=== PATIENT | female | born 1960 | race Caucasian/White ===

== ENCOUNTER 2019-06-09 15:55 | Emergency (ER) | payer BC ==
[~2019-06-09] VITALS: Ht 162.6 cm; Wt 63.3 kg
[~2019-06-09 15:55] MED LIST: ASPI-611 PO; BENA20TA82 PO; CARV12.5 PO; CHOL2000 PO; LORA0.5T PO; OMEP20CA11 PO; OSC500T PO
[2019-06-09 16:44] LABS: BASOPHILS % (AUTO) 0.8 % (0-1); EOSINOPHILS # (AUTO) 0.1 X10'3 (0-0.9); EOSINOPHILS % (AUTO) 2.5 % (0-6); HEMATOCRIT 41.1 % (35.0-45.0); HEMOGLOBIN 13.9 g/dl (12.0-16.0); LYMPHOCYTES # (AUTO) 1.4 X10'3 (1.1-4.8); LYMPHOCYTES % (AUTO) 47.2 % (21-51); MEAN CORPUSCULAR HEMOGLOBIN 31.6 PG (27.0-31.0); MEAN CORPUSCULAR HGB CONC 33.8 g/dL (33.0-36.5); MEAN CORPUSCULAR VOLUME 93.7 FL (78-98); MONOCYTES # (AUTO) 0.4 X10'3 (0-0.9); MONOCYTES % (AUTO) 13.1 % (2-12); NEUTROPHILS # (AUTO) 1.1 X10'3 (1.8-7.7); NEUTROPHILS % (AUTO) 36.4 % (42-75); PLATELET COUNT 165 X10'3 (140-440); RED BLOOD COUNT 4.38 X10'6 (4.20-5.60); RED CELL DISTRIBUTION WIDTH 12.8 % (11.5-14.5); WHITE BLOOD COUNT 3.1 X10'3 (4.5-11.0)
[2019-06-09 16:54] LABS: ALANINE AMINOTRANSFERASE 26 U/L (12-78); ALBUMIN/GLOBULIN RATIO 1.1 (1.1-1.5); ALKALINE PHOSPHATASE 41 IU/L (46-116); ANION GAP 9 (8-16); ASPARTATE AMINO TRANSFERASE 16 U/L (10-37); BLOOD UREA NITROGEN 16 MG/DL (7-18); BUN/CREATININE RATIO 22.5 (6.6-38.0); CALCIUM 9.2 MG/DL (8.5-10.1); CHLORIDE 108 MMOL/L (99-107); CREATININE 0.71 MG/DL (0.40-0.90); GLUCOSE 87 MG/DL (70-104); POTASSIUM 3.8 MMOL/L (3.5-5.1); SODIUM 143 MMOL/L (135-145); TOTAL CARBON DIOXIDE 26.5 MMOL/L (24-32); TOTAL PROTEIN 7.6 G/DL (6.4-8.2); eGFR 85 ML/MIN
[2019-06-09 16:55] LABS: PARTIAL THROMBOPLASTIN TIME 28 SECONDS (22-32)
[2019-06-09] MEDS ORDERED: potassium Cl 20 mEq SR tablet PO ONE (19:05)
[2019-06-09 20:26] VITALS: BP 164/79
== END 2019-06-09 20:28 | disposition home or self-care (01) ==
LOC: ER 16:00
DX: R07.89 Other chest pain (principal); R06.02 Shortness of breath; I10 Essential (primary) hypertension; K21.9 Gastro-esophageal reflux disease without esophagitis; F10.99 Alcohol use, unspecified with unspecified alcohol-induced disorder; Z86.19 Personal history of other infectious and parasitic diseases; Z88.1 Allergy status to other antibiotic agents; Z91.040 Latex allergy status; Z79.82 Long term (current) use of aspirin; Z79.899 Other long term (current) drug therapy; Y90.9 Presence of alcohol in blood, level not specified
CPT/HCPCS: 36415; 71045; 80053; 84484; 85025; 85610; 85730; 93005; 99284

== ENCOUNTER 2019-09-14 11:24 | Inpatient (IN) | payer BC, OTHER ==
[~2019-09-14] VITALS: Ht 162.6 cm; Wt 63.0 kg
--- NOTE | 2019-09-14 12:58 | NUR ---
travel clerk phoned Dr. Ibrahim and he is in the labor delivery rn but is aware of the patient's status and need to evaluate her.
[2019-09-14 13:08] LABS: BASOPHILS % (AUTO) 0.8 % (0-1); EOSINOPHILS # (AUTO) 0.1 X10'3 (0-0.9); EOSINOPHILS % (AUTO) 2.5 % (0-6); HEMATOCRIT 39.9 % (35.0-45.0); HEMOGLOBIN 13.7 g/dl (12.0-16.0); LYMPHOCYTES # (AUTO) 1.3 X10'3 (1.1-4.8); LYMPHOCYTES % (AUTO) 41.9 % (21-51); MEAN CORPUSCULAR HEMOGLOBIN 32.4 PG (27.0-31.0); MEAN CORPUSCULAR HGB CONC 34.3 g/dL (33.0-36.5); MEAN CORPUSCULAR VOLUME 94.6 FL (78-98); MEAN PLATELET VOLUME 9.1 FL (7.4-10.4); MONOCYTES # (AUTO) 0.4 X10'3 (0-0.9); MONOCYTES % (AUTO) 12.1 % (2-12); NEUTROPHILS # (AUTO) 1.3 X10'3 (1.8-7.7); NEUTROPHILS % (AUTO) 42.7 % (42-75); PLATELET COUNT 152 X10'3 (140-440); RED BLOOD COUNT 4.22 X10'6 (4.20-5.60); RED CELL DISTRIBUTION WIDTH 12.9 % (11.5-14.5); WHITE BLOOD COUNT 3.1 X10'3 (4.5-11.0)
[2019-09-14 13:18] LABS: ALANINE AMINOTRANSFERASE 22 U/L (12-78); ALBUMIN 3.9 G/DL (3.4-5.0); ALBUMIN/GLOBULIN RATIO 1.1 (1.1-1.5); ALKALINE PHOSPHATASE 45 IU/L (46-116); ANION GAP 7 (8-16); ASPARTATE AMINO TRANSFERASE 20 U/L (10-37); BILIRUBIN,TOTAL 0.8 MG/DL (0.1-1.0); BLOOD UREA NITROGEN 19 MG/DL (7-18); BUN/CREATININE RATIO 25.3 (6.6-38.0); CALCIUM 9.3 MG/DL (8.5-10.1); CHLORIDE 108 MMOL/L (99-107); CREATININE 0.75 MG/DL (0.40-0.90); GLUCOSE 98 MG/DL (70-104); MAGNESIUM 1.9 MG/DL (1.5-2.4); POTASSIUM 3.9 MMOL/L (3.5-5.1); SODIUM 144 MMOL/L (135-145); TOTAL CARBON DIOXIDE 28.8 MMOL/L (24-32); TOTAL PROTEIN 7.6 G/DL (6.4-8.2); eGFR 79 ML/MIN
[2019-09-14] MEDS ORDERED: mag hydrox/Alum hydrox/simeth 30ml oral suspension PO PRN (14:35)
[2019-09-14] MEDS ORDERED: CARV6.252 PO (14:35)
[2019-09-14] MEDS ORDERED: ondansetron/PF 4mg/2ml inj IV PRN (14:35)
[2019-09-14] MEDS ORDERED: magnesium hydroxide 30ml (MOM) UD suspension PO PRN (14:35)
[2019-09-14] MEDS ORDERED: acetaminophen 325mg tablet PO PRN (14:35)
--- NOTE | 2019-09-14 14:41 | NUR ---
Pt ambulatory in the hallway to the restroom with steady gait. Pt is being admitted and is awaiting Hospitalist for orders then bed assignment.
--- NOTE | 2019-09-14 15:12 | NUR ---
Dr. Dyer gave verbal ok for the patient to eat some food. Pt given snacks and juice at this time.
[2019-09-14] MEDS ORDERED: LORazepam 0.5 MG tablet PO PRN (16:10)
--- NOTE | 2019-09-14 16:25 | NUR ---
Dr. Ibrahim is at the bedside with the patient and discussing the plan of care going forward. Dr. Ibrahim is aware of the elevated BP reading. Pt to go to the floor momentarily.
[2019-09-14] MEDS: normal saline 1000ml 1,000 ML IV SCH (17:00)
[2019-09-14 18:00] VITALS: BP 143/61
--- NOTE | 2019-09-14 18:22 | NUR ---
Patient admitted to room PCU 3017 from ED. I have received report from Enriqueta FERGUSON and had the opportunity to ask questions and assume patient care. Pt is stable, telel monitor 52 placed, IVF running oriented pt to room, all needs met at this time, will continue to monitor.
--- NOTE | 2019-09-14 18:30 | NUR ---
Patient in room PCU 3017. I have received report from Gissell Vaughan and had the opportunity to ask questions and assume patient care.
--- NOTE | 2019-09-14 18:43 | NUR ---
Problems reprioritized. Patient report given, questions answered & plan of care reviewed with Diana FERGUSON.
[2019-09-14 19:07] VITALS: BP 144/79
[2019-09-14 22:00] VITALS: BP 107/50
[2019-09-15 02:00] VITALS: BP 109/67
--- NOTE | 2019-09-15 02:30 | NUR ---
Patient said she has a bout of chest pain lasting less than 2 min that woke her up from her sleep rated at a 3 and dwindled to a 1 and then was gone.
--- NOTE | 2019-09-15 03:17 | NUR ---
Informed Dr. Rivera of patient's chest pain, he does not wish to order anything at this time.
[2019-09-15] MEDS: normal saline 1000ml 1,000 ML IV SCH (05:16)
[2019-09-15 05:39] LABS: BASOPHILS % (AUTO) 0.5 % (0-1); EOSINOPHILS # (AUTO) 0.1 X10'3 (0-0.9); EOSINOPHILS % (AUTO) 3.3 % (0-6); HEMATOCRIT 37.2 % (35.0-45.0); HEMOGLOBIN 12.8 g/dl (12.0-16.0); LYMPHOCYTES # (AUTO) 1.4 X10'3 (1.1-4.8); LYMPHOCYTES % (AUTO) 39.3 % (21-51); MEAN CORPUSCULAR HEMOGLOBIN 32.5 PG (27.0-31.0); MEAN CORPUSCULAR HGB CONC 34.4 g/dL (33.0-36.5); MEAN CORPUSCULAR VOLUME 94.5 FL (78-98); MEAN PLATELET VOLUME 9.4 FL (7.4-10.4); MONOCYTES # (AUTO) 0.4 X10'3 (0-0.9); MONOCYTES % (AUTO) 11.9 % (2-12); NEUTROPHILS # (AUTO) 1.5 X10'3 (1.8-7.7); PLATELET COUNT 146 X10'3 (140-440); RED BLOOD COUNT 3.94 X10'6 (4.20-5.60); RED CELL DISTRIBUTION WIDTH 12.7 % (11.5-14.5); WHITE BLOOD COUNT 3.4 X10'3 (4.5-11.0)
[2019-09-15 05:54] LABS: ALBUMIN 3.1 G/DL (3.4-5.0); ANION GAP 8 (8-16); BLOOD UREA NITROGEN 16 MG/DL (7-18); BUN/CREATININE RATIO 21.6 (6.6-38.0); CALCIUM 8.7 MG/DL (8.5-10.1); CHLORIDE 109 MMOL/L (99-107); CREATININE 0.74 MG/DL (0.40-0.90); GLUCOSE 103 MG/DL (70-104); POTASSIUM 3.7 MMOL/L (3.5-5.1); SODIUM 143 MMOL/L (135-145); TOTAL CARBON DIOXIDE 25.9 MMOL/L (24-32); eGFR 81 ML/MIN
[2019-09-15 06:00] VITALS: BP 111/70
--- NOTE | 2019-09-15 06:21 | NUR ---
Problems reprioritized. Patient report given, questions answered & plan of care reviewed with PHYLLIS Vaughan.
--- NOTE | 2019-09-15 06:55 | NUR ---
Patient in room PCU 3017. I have received report from Diana FERGUSON and had the opportunity to ask questions and assume patient care.
[2019-09-15] MEDS ORDERED: pantoprazole 40mg Tablet.DR PO SCH (07:30)
[2019-09-15] MEDS ORDERED: lisinopril 20mg tablet PO SCH (08:00)
[2019-09-15] MEDS ORDERED: vitamin D (cholecalciferol) 1,000 unit tablet PO SCH (08:00)
[2019-09-15] MEDS ORDERED: aspirin 81mg tablet.DR PO SCH (08:00)
[2019-09-15] MEDS ORDERED: calcium carbonate 500mg tablet PO SCH (08:00)
--- NOTE | 2019-09-15 09:51 | NUR ---
received orders from dr. carrasco to decrease coreg to 3.125mg BID.
[2019-09-15 11:00] VITALS: BP 128/79
[2019-09-15] MEDS ORDERED: COR3.125T PO (14:14)
--- NOTE | 2019-09-15 15:05 | NUR ---
Per pt request, new prescription called to [facility] on [address] in [place], [place].
--- NOTE | 2019-09-15 15:15 | NUR ---
Pt discharged at this time. Discharge packet reviewed with patient. Pt states will follow up with Dr Ibrahim. IV removed by student PHYLLIS Lamb, catheter intact, dressing applied. conveyor monitor removed. Pt takes two bags of belongings home with her, states that she has all of her valuables with her. Pt escorted to hotel lobby by student PHYLLIS Lamb, no complications. Pt off floor.
[2019-09-15] MEDS ORDERED: carVEDilol 3.125mg tablet PO SCH (20:00)
== END 2019-09-15 15:59 | disposition home or self-care (01) | DRG 310 ==
LOC: ER 11:26 → ED HOLD 14:34 → PCU 3S 16:30
PROVIDERS: ADMIT Family Medicine; ATTEND Family Medicine
DX: I49.5 Sick sinus syndrome (principal); B19.20 Unspecified viral hepatitis C without hepatic coma; E78.5 Hyperlipidemia, unspecified; I10 Essential (primary) hypertension; I25.10 Atherosclerotic heart disease of native coronary artery without angina pectoris; K21.9 Gastro-esophageal reflux disease without esophagitis; K74.60 Unspecified cirrhosis of liver; N95.1 Menopausal and female climacteric states; Z82.49 Family history of ischemic heart disease and other diseases of the circulatory system; Z87.891 Personal history of nicotine dependence; Z88.1 Allergy status to other antibiotic agents; Z91.040 Latex allergy status
CPT/HCPCS: 36415; 80048; 80053; 83735; 84484; 85025; 87081; 93005; 99285; G0378; J7030